=== PATIENT | male | born 1990 | race Caucasian/White ===

== ENCOUNTER 2018-07-05 17:00 | Outpatient (RCR) | payer BC, SELFPAY | END 2018-08-03 10:46 | disposition home or self-care (01) | LOC: PT 17:00 | PROVIDERS: Visit Provider Nurse Practitioner Family | DX: M25.551 Pain in right hip (principal); M54.5 Low back pain | CPT/HCPCS: 97010; 97012; 97014; 97110; 97163; G0283 ==

== ENCOUNTER 2018-10-04 08:30 | Outpatient (RCR) | payer BC, SELFPAY | END 2018-11-02 17:10 | disposition home or self-care (01) | LOC: PT.CARL 08:30 | PROVIDERS: Visit Provider Nurse Practitioner Family | DX: M54.5 Low back pain (principal) | CPT/HCPCS: 97012; 97110; 97140; 97163 ==